=== PATIENT | male | born 1985 ===

== ENCOUNTER 2018-04-07 10:17 | Emergency (ER) | payer OTHER ==
[2018-04-07 10:30] VITALS: BP 149/91; RESP 18; TEMP 98.5; O2SAT 97
[2018-04-07] MEDS ORDERED: Oxymetazoline 0.05% Nasal Spray (30 ml) NS STA (11:05)
--- NOTE | 2018-04-07 11:09 | C.PDOC ---
History Of Present Illness 33 year old male presents to the ED complaining of recurrent sinus congestion symptoms for 2 days. Patient complains of a sinus headache and discharge. Tried using [id number] nasal sprays with no improvement. Otherwise denies any fever, chills, or productive cough. Time Seen by Provider: 04/07/18 10:54 Chief Complaint (Nursing): ENT Problem History Per: Patient History/Exam Limitations: no limitations Onset/Duration Of Symptoms: Days Current Symptoms Are (Timing): Still Present Location Of Pain: Sinus/es Past Medical History Reviewed: Historical Data, Nursing Documentation, Vital Signs Vital Signs: Last Vital Signs Temp 98.5 F 04/07/18 10:27 Pulse 57 L 04/07/18 10:27 Resp 18 04/07/18 10:27 BP 149/91 H 04/07/18 10:27 Pulse Ox 97 04/07/18 11:29 - Medical History Other PMH: Sinusitis Surgical History: No Surg Hx Family History: States: No Known Family Hx - Social History Hx Tobacco Use: Yes Hx Alcohol Use: Yes Hx Substance Use: No Review Of Systems Except As Marked, All Systems Reviewed And Found Negative. Constitutional: Negative for: Fever, Chills ENT: Positive for: Nose Discharge, Nose Congestion, Other (Sinus congestion and pain) Respiratory: Negative for: Cough, Shortness of Breath Neurological: Positive for: Headache. Negative for: Weakness, Numbness, Dizziness Physical Exam - Physical Exam Appears: Non-toxic, In Acute Distress (mild distress) Skin: Normal Color, Warm, Dry Head: Atraumatic, Normacephalic, Other (Frontal and maxillary sinus tenderness, no swelling) Eye(s): bilateral: Normal Inspection, PERRL, EOMI Nose: Discharge (Severe congestion, with white clear rhinorrhea) Neck: Normal ROM Chest: Symmetrical Cardiovascular: Rhythm Regular Respiratory: Normal Breath Sounds, No Accessory Muscle Use, Other (NARD) Extremity: Bilateral: Atraumatic, Normal Color And Temperature Pulses: Left Radial: Normal, Right Radial: Normal Neurological/Psych: Oriented x3, Normal Speech ED Course And Treatment O2 Sat by Pulse Oximetry: 97 (RA) Pulse Ox Interpretation: Normal Medical Decision Making Medical Decision Making: Impression: Sinusitis Plan: --Claritin 10 mg PO --Sudafed 60 mg PO --Tylenol 975 mg PO --Afrin 2 ml NS Patient will be discharged home with Claritin, Sudafed, and Tylenol prescriptions. Advised to follow up with PMD for further evaluation. Disposition Counseled Patient/Family Regarding: Diagnosis, Need For Followup, Rx Given - Disposition Referrals: [facility] [Outside] [facility] [Outside] Disposition: HOME/ ROUTINE Disposition Time: 11:06 Condition: IMPROVED Prescriptions: Acetaminophen [Tylenol Extra Strength] 2 tab PO Q6 #30 tablet Loratadine [Claritin] 10 mg PO DAILY #30 tab Pseudoephedrine HCl [Sudafed 24 Hour] 240 mg PO DAILY PRN #1 unit PRN Reason: Sinus Symptoms Instructions: Sinusitis, Adult (DC) Forms: [employer] (Frisian), Work Excuse Print Language: VINCENTIAN - POA Present On Arrival: None - Clinical Impression Clinical Impression: Sinusitis, acute - Scribe Statement The provider has reviewed the documentation as recorded by the Scribe (Michelle Wu) Provider Attestation: All medical record entries made by the Scribe were at my direction and personally dictated by me. I have reviewed the chart and agree that the record accurately reflects my personal performance of the history, physical exam, medical decision making, and the department course for this patient. I have also personally directed, reviewed, and agree with the discharge instructions and disposition.
[2018-04-07] MEDS ORDERED: Oxymetazoline 0.05% Nasal Spray (30 ml) NS ONE (11:31)
[2018-04-07 11:53] VITALS: PULSE 60
== END 2018-04-07 11:53 | disposition home or self-care (01) ==
LOC: C.ER 10:17
DX: J01.90 Acute sinusitis, unspecified (principal)